=== PATIENT | female | born 1985 | race Caucasian/White ===

== ENCOUNTER 2018-01-17 12:21 | Emergency (ER) | END 2018-01-17 16:47 | disposition home or self-care (01) ==

== ENCOUNTER 2018-01-18 11:44 | Emergency (ER) | END 2018-01-18 18:48 | disposition home or self-care (01) ==

== ENCOUNTER 2018-05-25 10:34 | Emergency (ER) | END 2018-05-25 12:33 | disposition home or self-care (01) ==